=== PATIENT | female | born 2000 | race Two or more races ===

== ENCOUNTER 2022-12-20 20:50 | Emergency (ER) | payer MEDICAID, OTHER ==
[~2022-12-20] VITALS: Ht 160 cm; Wt 80.0 kg
[2022-12-20 23:10] VITALS: BP 105/69
[2022-12-20] MEDS ORDERED: TETANUS-DIPTH-ACEL PERTUSSIS 0.5ML SYR Tdap IM ONE (23:30)
== END 2022-12-20 23:52 | disposition home or self-care (01) ==
LOC: ER 20:57
DX: S61.210A Laceration without foreign body of right index finger without damage to nail, initial encounter (principal); W25.XXXA Contact with sharp glass, initial encounter; Y93.89 Activity, other specified; Y92.89 Other specified places as the place of occurrence of the external cause; Y99.8 Other external cause status
CPT/HCPCS: 12001; 90471; 90715

== ENCOUNTER 2024-03-05 03:43 | Emergency (ER) | payer OTHER, MEDICAID ==
[~2024-03-05] VITALS: Ht 160 cm; Wt 79.4 kg
[2024-03-05 05:12] LABS: Hemoglobin 12.6 g/dL (12.2-16.2); Lymphocytes # (auto) 1.9 10 ^3/uL (0.4-5.4); Mean Corpuscular Volume 80.6 fL (80.0-100.0)
[2024-03-05 05:18] LABS: Basophils # (auto) 0 10 ^3/uL (0-0.2); Basophils % (auto) 0.6 % (0.0-2.0); Eosinophils # (auto) 0.2 10 ^3/uL (0-0.8); Eosinophils % (auto) 3.3 % (0.0-7.0); Hematocrit 37.7 % (36.0-46.0); Mean Corpuscular Hemoglobin 26.8 pg (28.0-32.0); Mean Corpuscular Hgb Conc. 33.3 g/dL (32.0-36.0); Monocytes # (auto) 0.9 10 ^3/uL (0-1.3); Monocytes % (auto) 11.5 % (0.0-12.0); Neutrophils # (auto) 4.4 10 ^3/uL (1.6-8.6); Neutrophils % (auto) 58.6 % (37.0-80.0); Red Blood Cells 4.68 10^6/uL (4.0-5.20); Red Cell Distribution Width 15.2 % (11.8-14.3); White Blood Cell 7.5 10^3/uL (4.4-10.8)
[2024-03-05 05:32] LABS: Alanine Aminotransferase 111 U/L (7-40); Albumin 4.1 g/dL (3.2-4.8); Alkaline Phosphatase 91 U/L (46-116); Anion Gap 6 (5-15); Aspartate Aminotransferase 85 U/L (13-40); BUN/Creatinine Ratio 10.7 (10.0-20.0); Blood Urea Nitrogen 8 mg/dL (9-23); Calcium 9.2 mg/dL (8.7-10.4); Carbon Dioxide 28 mmol/L (20-30); Chloride 106 mmol/L (98-107); Glucose 97 mg/dL (74-106); Potassium 3.8 mmol/L (3.5-5.1); Sodium 140 mmol/L (136-145)
[2024-03-05 05:33] LABS: Bilirubin, Total 0.4 mg/dL (0.2-1.0); Total Protein 7.3 g/dL (5.7-8.2)
[2024-03-05 05:45] VITALS: BP 110/70; PULSE 87; RESP 14; O2SAT 97
[2024-03-05] MEDS: ACETAMINOPHEN 325 MG TAB PO ONE (05:46)
[2024-03-05] MEDS: SODIUM CHLORIDE 0.9% 1,000 ML IV ONE (05:58)
[2024-03-05] MEDS: KETOROLAC TROMETH 30 MG/ML 1ML VIAL IV ONE (05:58)
[2024-03-05] MEDS ORDERED: CEPH500C PO (06:04)
[2024-03-05 06:43] VITALS: TEMP 98.7
== END 2024-03-05 06:59 | disposition home or self-care (01) ==
LOC: ER 03:43
DX: O91.23 Nonpurulent mastitis associated with lactation (principal); R51.9 Headache, unspecified
CPT/HCPCS: 36415; 80053; 85025; 96361; 96374; 99283; J1885; J7030